=== PATIENT | male | born 1995 | race African-American/Black ===

== ENCOUNTER 2018-03-23 10:24 | Emergency (ER) | payer OTHER, SELFPAY ==
[2018-03-23 10:28] VITALS: BP 135/78; PULSE 90; RESP 16; TEMP 37.3; O2SAT 95
--- NOTE | 2018-03-23 10:39 | ED.GENADUL_ITS ---
Discharge Plan Disposition Patient Disposition: HOME Condition: Improving Discharge Details Chief Complaint: RespSymp Clinical Impression: Acute streptococcal pharyngitis ED Provider: Neftali Pena Home Meds and New Rx's Prescriptions: New penicillin V potassium 500 mg tablet 500 mg PO TID 10 Days Qty: 30 RF: 0 Discharge Instructions Instructions: Pharyngitis (ED) Additional Instructions: Small, frequent sips of fluids to maintain hydration. May use Tylenol and/or ibuprofen as needed for discomfort. Take penicillin as prescribed. Return for any acute concerns. Stand Alone Forms: School Release Medical Decision Making 22-year-old male presents from [facility] with 2 days of sore throat, fever chills and body aches. Triage vital signs are normal. Rapid strep test positive. Discussed with him treatment including course of penicillin. He is stable for outpatient management HPI General Mode of arrival: ambulatory . Date/Time Provider Initiated Documentation: 03/23/18 10:30 . Limitations to Documentation: no limitations . Information obtained by: patient . History of Present Illness 22 year old M presents to the emergency department with the chief complaint of Sore throat, fever, aches for 2 days, described as moderate, and is localized to the mouth. Patient reports no radiation. Patient started experiencing this day(s) and it has been constant. No relieving factors improve symptom(s), Patient notes cough and fever/chills. Patient did receive the following treatments prior to arrival, none Related Data Home Medications Medication Instructions Recorded Confirmed penicillin V potassium 500 mg PO TID 10 Days #30 tab 03/23/18 Previous Rx's Medication Instructions Recorded penicillin V potassium 500 mg PO TID 10 Days #30 tab 03/23/18 Allergies Allergy/AdvReac Type Severity Reaction Status Date / Time No Known Allergies Allergy Unverified 03/23/18 10:32 General Stated Complaint: RespSymp KWAME: 4 Review of Systems Review of Systems 6 systems reviewed and otherwise negative [facility] Social History Smoking/Tobacco Use Status: Never Exam Narrative Exam Narrative: GEN: awake, alert, oriented 3. Pleasant, well groomed, interactive. HEAD: Normocephalic, atraumatic ENT: Mucous membranes dry, by lateral tonsillar erythema and mild swelling without asymmetry, tympanic membranes unremarkable, External ear exam unremarkable EYES: PERRL, EOMI NECK: Full ROM, no LORENA, no menigismus CHEST/RESP: Nontender, clear to auscultation bilateral, no wheeze/rhonchi/rales CARDIOVASCULAR: RRR, no murmur, rub mike. 2+ Rad pulse bilateral ABDOMEN: Soft, nontender, no mass. +Bowel sounds EXT: Full ROM, no edema, no rash Neuro: Grossly normal neurologic exam, conversant, interactive. Psych: Speech fluent, thoughts congruent, affect normal Course Vital Signs Temperature 37.3 C 03/23/18 10:28 Pulse 90 03/23/18 10:28 Respiratory Rate 16 03/23/18 10:28 Blood Pressure 135/78 03/23/18 10:28 Pulse Oximetry 95 03/23/18 10:28 Temperature 37.3 C 03/23/18 10:28 Temperature Source Temporal Artery Scan 03/23/18 10:28 Pulse 90 03/23/18 10:28 Respiratory Rate 16 03/23/18 10:28 Respiratory Effort Non-Labored 03/23/18 10:32 Blood Pressure 135/78 03/23/18 10:28 Blood Pressure Position Sitting 03/23/18 10:28 Pulse Oximetry 95 03/23/18 10:28 Oxygen Delivery Method Room Air 03/23/18 10:28 Oxygen Flow Rate 0 03/23/18 10:28 Pain Level 10 03/23/18 10:28 Comment 03/23/18 10:28
== END 2018-03-23 10:50 | disposition home or self-care (01) ==
PROVIDERS: Emergency Provider Emergency Medicine
DX: J02.0 Streptococcal pharyngitis (principal)
CPT/HCPCS: 87880; 99283

== ENCOUNTER 2018-05-15 01:01 | Emergency (ER) | payer OTHER, SELFPAY ==
[2018-05-15 01:05] VITALS: BP 148/78; PULSE 98; RESP 16; TEMP 36.8; O2SAT 99
--- NOTE | 2018-05-15 01:07 | ED.GENADUL_ITS ---
Discharge Plan Disposition Patient Disposition: HOME Condition: Stable Discharge Details Chief Complaint: Orthopedic Clinical Impression: Contusion of right knee, Right knee sprain Primary Care Provider: Jes,Local ED Provider: Ashlee Aguiar Home Meds and New Rx's Prescriptions: No Action No Known Home Meds RF: 0 Discharge Instructions Instructions: Knee Sprain (ED), Contusion in Adults (ED) Additional Instructions: Rest, ice, elevate right knee as much as possible. Use the crutches over the next few days for ambulation. Avoid weightbearing for the next few days to allow your knee to rest. Alternate Tylenol and Motrin as needed and directed for pain. Follow-up with orthopedics if your pain does not improve or worsen. Return immediately to the emergency department with any worsening or new concerning symptoms. Referrals: Neftali Diamond MD [ [facility] STAFF PHYSICIAN] - Discharge Data Discharge Physician: Ashele Aguiar Medical Decision Making 23-year-old male presents with right knee pain after hit on lateral aspect while playing soccer a few hours ago. No deformity noted. Pain noted with flexion in right lateral knee. Pain with varus stress. No ligamentous instability. Limited exam due to pain, but negative anterior and posterior drawer and Hu's test. Neurovascularly intact. No deformity noted. No tenderness palpation of proximal tibia. Normal right hip, ankle and foot exam. We will give a dose of ibuprofen and send for right knee x-ray. 0230 -- Xray negative. Patient may brace and crutches. He is instructed to rest, ice, elevate and nonweightbearing for the next 2 days. If he has no improvement or worsening of symptoms, recommended follow-up with orthopedics for reevaluation. He is instructed to return here with any concerns. Medical Records Medical records reviewed: Yes I reviewed the patient's medical records. Imaging Data Radiologic Study: Radiologist's impression: XR Right Knee, 4 or more Views EXAM DATE/TIME: 05/15/2018 1:43 AM FINDINGS: Bones/joints: Fabella incidentally noted Soft tissues: Normal. IMPRESSION: No acute findings HPI General Mode of arrival: ambulatory . Date/Time Provider Initiated Documentation: 05/15/18 01:06 . Limitations to Documentation: no limitations . Information obtained by: patient . HPI Narrative: Patient is a 23-year-old male presents with right knee pain after hit on the lateral aspect of his right knee while playing soccer a few hours ago. Patient has been able to ambulate but with pain. He took Tylenol for pain. He denies any hip, ankle or foot injury or pain. Related Data Home Medications Medication Instructions Recorded Confirmed Unknown [No Known Home Meds] 05/15/18 05/15/18 Allergies Allergy/AdvReac Type Severity Reaction Status Date / Time No Known Allergies Allergy Unverified 05/15/18 01:05 General KWAME: 4 Review of Systems Review of Systems All systems reviewed & are unremarkable except as noted in HPI and below PFSH Medical History No significant past medical history (Acute) Surgical History H/O removal of cyst (Acute) H/O shoulder surgery (Chronic) Social History Smoking/Tobacco Use Status: Never Alcohol Intake: never Drug use: Occasionally Substance use type: does not use Do you feel safe at home: Yes Do you feel safe in your relationship?: Yes Exam Const General: cooperative, healthy appearing and no acute distress HENMT Head: normal to inspection Mouth: oral mucosae normal Eyes General: appearance normal, both eyes and all related structures Neck Neck: normal visual inspection Resp Effort & Inspection: normal respiratory effort and able to speak in complete sentences Cardio Rate: regular rate Skin General skin exam: no rashes or lesions noted Neuro General: alert, awake and oriented x3 Motor: muscle tone normal throughout Extrem Other: Tenderness to palpation of right lateral knee. Some pain with varus stress. No pain with valgus stress. No ligamentous instability with valgus or varus stress. Limited ability to assess for anterior and posterior drawer test due to pain with flexion, but no obvious ligamentous instability. Negative Hu's test. No pain in right hip with range of motion. No tenderness palpation of proximal leg. Normal right foot and ankle exam. Right DP/PT pulses intact. No deformity. No edema, erythema or ecchymosis noted to the knee or proximal leg. There is a small 1 x 1 cm area of ecchymosis to right distal anterior leg but no tenderness to palpation or deformity or open wounds noted. Psych Appearance: grossly normal Affect: normal affect
[2018-05-15] MEDS: Ibuprofen 600 MG TAB PO (01:16)
--- NOTE | 2018-05-15 01:51 | DI.RAD_ITS ---
SYMPTOM/DIAGNOSIS: SIDESWIPED PERSON, HIT KNEE, PAIN RIGHT KNEE: There is no evidence of a fracture or dislocation.
--- NOTE | 2018-05-15 02:29 | DI.VRAD_ITS ---
EXAM: XR Right Knee, 4 or more Views EXAM DATE/TIME: 05/15/2018 1:43 AM CLINICAL HISTORY: 23 years old, male; Injury or trauma; Injury history: Soccer game, blunt trauma; Initial encounter; Knee; Right; Injury date: 05/14/2018 TECHNIQUE: Imaging protocol: XR Right knee 4 or more views. COMPARISON: No relevant prior studies available. FINDINGS: Bones/joints: Fabella incidentally noted Soft tissues: Normal. IMPRESSION: No acute findings Dictated and Authenticated by: Bud Milligan MD. Ordering:STEF Rosado MD
== END 2018-05-15 02:47 | disposition home or self-care (01) ==
PROVIDERS: Emergency Provider Physician Assistant
DX: R20.2 Paresthesia of skin (principal); S80.01XA Contusion of right knee, initial encounter; S83.91XA Sprain of unspecified site of right knee, initial encounter; W50.1XXA Accidental kick by another person, initial encounter; Y93.66 Activity, soccer
CPT/HCPCS: 29505; 99283; 73564; E0114; L1810